=== PATIENT | female | born 1990 | race Caucasian/White ===

== ENCOUNTER 2017-11-28 13:58 | Emergency (ER) | payer OTHER ==
[2017-11-28 14:16] VITALS: BP 121/84
--- NOTE | 2017-11-28 15:27 | UC ---
Respiratory Complaint HPI - HPI Summary HPI Summary: Patient presents with an unremarkable past medical history. She states she is currently 5 week . She is G4, P2, A1. She presents today with complaints of 3 week onset left ear pain, scratchy throat at night, and persistent cough, at times with productive sputum. She states that her symptoms seem to be worse at night time. She states her child has been ill as well. She states she believes she has been running a low grade fever at times at home. She denies any chest, or abdominal pain, nausea, vomiting, or diarrhea. She denies palpitation, sensation of her heart racing, shortness of breath, leg pain , or calf pain, prolonged periods of immobility, recent surgeries, of blood disorders. - History of Current Complaint Chief Complaint: UCRespiratory Stated Complaint: COUGH Time Seen by Provider: 11/28/17 14:57 Hx Obtained From: Patient Hx Last Menstrual Period: 10/24/17 Onset/Duration: Gradual Onset, Lasting Weeks Timing: Intermittent Episodes Severity Initially: Mild Severity Currently: Moderate Pain Intensity: 0 Character: Cough: Productive Aggravating Factors: Deep Breaths, Recumbent Position Alleviating Factors: Upright Position, Spontaneous Resolution Associated Signs And Symptoms: Positive: Fever, URI, Nasal Congestion - Risk Factors Pulmonary Embolism Risk Factors: Cardiac Risk Factors: Negative - Allergies/Home Medications Allergies/Adverse Reactions: Allergies Allergy/AdvReac Type Severity Reaction Status Date / Time latex Allergy Itching Verified 11/28/17 14:17 Penicillins Allergy Hives Verified 11/28/17 14:17 PMH/Surg Hx/FS Hx/Imm Hx Previously Healthy: Yes - Surgical History Surgical History: None Surgery Procedure, Year, and Place: csection 05/2008, tubes in ears as a child. D&C - Family History Known Family History: Positive: Cardiac Disease, Hypertension, Diabetes - Social History Lives: With Family Alcohol Use: None Substance Use Type: None Smoking Status (MU): Former Smoker Have You Smoked in the Last Year: No - Immunization History Most Recent Influenza Vaccination: never Most Recent Tetanus Shot: 11/01/15 Most Recent Pneumonia Vaccination: never Review of Systems Constitutional: Negative Skin: Negative Eyes: Negative ENT: Sore Throat, Ear Ache, Nasal Discharge, Sinus Congestion Respiratory: Cough Cardiovascular: Negative Gastrointestinal: Negative Genitourinary: Negative Motor: Negative Neurovascular: Negative Musculoskeletal: Negative Neurological: Negative Psychological: Negative Is Patient Immunocompromised?: No All Other Systems Reviewed And Are Negative: Yes Physical Exam Triage Information Reviewed: Yes Appearance: Well-Appearing Vital Signs: Initial Vital Signs Temp 97.7 F 11/28/17 14:14 Pulse 90 11/28/17 14:14 Resp 18 11/28/17 14:14 BP 121/84 11/28/17 14:14 Pulse Ox 99 11/28/17 14:14 Vital Signs Reviewed: Yes Eye Exam: Normal ENT: Positive: Pharyngeal erythema, Nasal congestion, Nasal drainage, Uvula midline Neck exam: Normal Neck: Positive: 1 Respiratory: Positive: Rhonchi Cardiovascular Exam: Normal Abdominal Exam: Normal Musculoskeletal Exam: Normal Neurological Exam: Normal Psychological Exam: Normal Skin Exam: Normal UC Diagnostic Evaluation - Laboratory O2 Sat by Pulse Oximetry: 99 Respiratory Course/Dx - Course Course Of Treatment: Patient presents with three week onset respiratory illness unreponsive to OTC treatment. She presents with a nontoxic appearance, but does have persisent coughing in the clinic. She is 5 weeks . She was treated for bronchitis with cefdinir, and robitussin. I asked her to double check the meds with the pharmacy and follow up with her PCP. She verbalized understanding of and was in agreement with the discharge plan. - Differential Dx/Diagnosis Differential Diagnosis/HQI/PQRI: Bronchitis Provider Diagnoses: bronchitis Discharge - Discharge Plan Condition: Stable Disposition: HOME Prescriptions: Cefdinir [Cefdinir 300 MG CAP] 300 mg PO BID #20 capsule GuaiFENesin DM* [Robitussin DM*] 5 ml PO Q6H PRN #120 ml PRN Reason: Cough Patient Education Materials: Acute Bronchitis (ED) Referrals: Bailey Kimble MD [Primary Care Provider] -
== END 2017-11-28 15:27 | disposition home or self-care (01) ==
LOC: UCEAST 13:58
DX: O26.891 Other specified pregnancy related conditions, first trimester (principal); Z3A.01 Less than 8 weeks gestation of pregnancy; J40 Bronchitis, not specified as acute or chronic; Z87.891 Personal history of nicotine dependence; Z88.0 Allergy status to penicillin
CPT/HCPCS: 99212; G0463

== ENCOUNTER 2019-05-12 07:15 | Day surgery (SDC) | payer OTHER ==
[~2019-05-12 07:15] MED LIST: Buffered Lidocaine 1% SYRIN* 1 ML/SYRINGE INTRADERM ONE; Dexamethasone IV* 4 MG/ML 1 ML (4 MG) IV SLOW PU ONE; Famotidine IV* 10 MG/ML 2 ML (20 mg) IV ONE; Lactated Ringers 1000 ML Bag* 1,000 ML IV SCH
[2019-05-12] MEDS ORDERED: Buffered Lidocaine 1% SYRIN* 1 ML/SYRINGE INTRADERM ONE (07:48)
[2019-05-12] MEDS ORDERED: Clindamycin 900 MG IVPREMIX(* 900 MG/50 ML SDV IV ONE (07:48)
[2019-05-12] MEDS ORDERED: Dexamethasone IV* 4 MG/ML 1 ML (4 MG) ONE (07:48)
[2019-05-12] MEDS ORDERED: Famotidine IV* 10 MG/ML 2 ML (20 mg) ONE (07:48)
[2019-05-12] MEDS ORDERED: oxyCODONE/Acetamin 5/325 MG* TAB PO PRN (08:18)
[2019-05-12] MEDS ORDERED: HYDROcodone/ACETAMIN 5-325 MG* 1 TAB PO PRN (08:18)
[2019-05-12] MEDS ORDERED: Acetaminophen TAB* 325 MG PO PRN (08:18)
[2019-05-12] MEDS ORDERED: Ketorolac INJ* 30 MG/ML 1 ML VIAL IV PRN (08:18)
[2019-05-12] MEDS ORDERED: DiMENhydriNATE IV* 50 MG/ML VIAL IV PUSH PRN (08:18)
[2019-05-12] MEDS ORDERED: Naloxone* 0.4 MG/ML 1 ML VIAL IV PRN (08:18)
[2019-05-12] MEDS ORDERED: fentaNYL* 50 MCG/ML 2 ML VIAL (100 MCG VIAL) IV PRN (08:18)
[2019-05-12] MEDS ORDERED: fentaNYL* 50 MCG/ML 2 ML VIAL (100 MCG VIAL) ONE (09:07)
[2019-05-12] MEDS ORDERED: Midazolam* 1 MG/ML 5 ML VIAL (5 MG) ONE (09:07)
[2019-05-12] MEDS ORDERED: Propofol* 10 MG/ML 20 ML BTL ONE (09:07)
[2019-05-12] MEDS ORDERED: Lidocaine 2% PF * 5 ML VIAL ONE (09:08)
[2019-05-12] MEDS ORDERED: Dexamethasone IV* 4 MG/ML 5 ML VIAL (20 MG) ONE (09:37)
[2019-05-12] MEDS ORDERED: Bupivacaine 0.25% SDV PF* 10 ML VIAL INJ ONE (09:37)
[2019-05-12] MEDS ORDERED: Lidocaine 1% INJ* 10 MG/ML 30 ML SDV ONE (09:37)
[2019-05-12] MEDS ORDERED: EPHEDrine (Pressors)* 50 MG/ML VIAL ONE (10:20)
[2019-05-12] MEDS ORDERED: Midazolam* 1 MG/ML 2 ML VIAL (2 MG) ONE (11:19)
[2019-05-12] MEDS ORDERED: Ondansetron INJ* 2 MG/ML VIAL ONE (11:41)
[2019-05-12 12:09] VITALS: BP 118/71
--- NOTE | 2019-05-12 16:36 | OP ---
DATE OF OPERATION: 05/12/19 - [facility] DATE OF : 88 SURGEON: Pedro Ceballos DPM. ANESTHESIA: MAC local. PRE-OP DIAGNOSIS: Right hallux valgus. POST-OP DIAGNOSIS: Right hallux valgus. OPERATIVE PROCEDURE: Right hallux valgus repair. ESTIMATED BLOOD LOSS: Less than 10 cc. IV FLUIDS: LR 1000 cc. DRAINS: None. SPECIMENS: Bone and bone shavings from the first metatarsal head area as specimens. DESCRIPTION OF PROCEDURE: The patient was taken to the operating room and was placed in the supine position. Time-out was called and OR team agreed. The right foot was then blocked with 10 cc of 1% lidocaine plain in a Sanchez block fashion at the base of the first metatarsal. The foot was then prepped and draped in a sterile manner. The right foot was exsanguinated with an Esmarch bandage and the cuff was then inflated to 250 mmHg. Attention was then paid to the first metatarsophalangeal joint where there was a moderate-sized hallux valgus deformity with a moderate abnormal increase of the first and second metatarsal intermetatarsal angle. I went ahead and dissected at the level of the first metatarsophalangeal joint from dermis, epidermis, subcutaneous tissue , and down to the deep fascia and capsule. I went ahead and incised the capsule and dissected down to the joint. I went ahead and used a sagittal saw to remove the dorsomedial exostosis as well as the dorsal exostosis and tried to remodel the head of the first metatarsal, convert it to a round metatarsal head so it can fit nicely with the articular surface of the proximal phalanx. I went ahead and extended this incision proximally and continued the dissection with all neurovascular structures retracted from the site all the way down to the first metatarsal and first metatarsocuneiform joint. I went ahead and dissected that. Once I was able to free the first metatarsal all the way down to the first metatarsocuneiform joint, I went ahead and performed an oblique wedge osteotomy. I removed an oblique wedge of bone and intentionally broke the hinge at the medial aspect for the purpose of shortening the first metatarsal as well as plantar flexing it and derotating it, creating a triplanar correction at the level of the first metatarsophalangeal joint and at the same time, just shortening the metatarsal as she had a long first metatarsal to reduce jamming and constriction at the first metatarsophalangeal joint movement. When I was able to successfully do that, I went ahead and fixated it with two 2.0 screws from the [employer] set. The first proximal screw, which I placed perpendicular to the axis of the metatarsal, was 26 mm long; and, the more distal screw, which I placed perpendicular to the osteotomy, was 28 mm long. This was done under the guidance of fluoroscopy. Once it was determined that I had good fixation, the procedure was then deemed completed. I went ahead and took one last fluoroscopy to look at the alignment at the first metatarsophalangeal joint to be used for my finding. There was a good congruent alignment of the first metatarsophalangeal joint. The fibular and tibial sesamoid were perfectly in place and the intermetatarsal angle was reduced to 0 degrees. This completes the procedure. The wound was then irrigated and closed in a layered anatomical fashion. The deeper tissues were closed with an absorbable 3-0 Vicryl and the skin was closed with 4-0 nylon in interrupted fashion. The site was injected with 8 cc of 0.25% Marcaine plain as well as 8 mg or 2 cc of dexamethasone phosphate. The cuff was then deflated. The foot was placed in a dry sterile dressing. I evaluated the capillary refill of all the right toes #1, #2, #3, #4, and #5 and they had good instantaneous refill with no signs of ischemia. The patient was taken to recovery in stable condition and was later discharged in stable condition as well. [id number]/[facility] #: [id number] [facility]ITALTai
== END 2019-05-12 13:20 | disposition home or self-care (01) ==
LOC: OR 07:15
PROVIDERS: ATTEND Podiatrist
DX: M20.11 Hallux valgus (acquired), right foot (principal); R73.01 Impaired fasting glucose; Z87.891 Personal history of nicotine dependence
CPT/HCPCS: 76000; 81025; 88304; 88311; C1713; C1776; J1100; J2250; J2405; J2704; J3010; J3490

== ENCOUNTER 2019-12-17 19:41 | Emergency (ER) | payer OTHER ==
--- OUTSIDE RECORDS SUMMARY | 2019-12-17 19:46 | XMS REPORT | Summary of Care ---
:1990 Author Organization [facility] Address [address] [address] Care Team Providers Name Role Phone Bailey Kimble Primary Care Provider Reason for Visit Reason Comments Sick last two days her throat has been hurting, runny nose, headache, hot anf cold flashes. Encounter Details Date Type Department Care Team Description 12/06/2019 Office Visit [facility] Miguel Flores, Sore throat ( Primary Dx); Medicine [place] Cough; [address] [place] [address] [place] [address] [phone] Allergies Active Allergy Reactions Severity Noted Date Comments Latex Dermatologic Reaction 10/29/2015 Penicillin G Potassium Hives 06/30/2007 documented as of this encounter (statuses as of 12/06/2019) Medications Medication Sig Dispensed Refills Start Date End Date Status valACYclovir HCl Take by mouth 0 Active (VALTREX PO) NEEDED. Benzonatate 200 MG Oral Take 1 Cap by 42 Cap 0 12/06/2019 Active CapIndications: Cough mouth THREE TIMES DAILY NEEDED (For cough). fluticasone (FLONASE) Shelbina 2 Sprays in 1 Bottle 3 12/06/2019 Active 50 MCG/ACT Nasal nose DAILY. SuspensionIndications: Nasal congestion guaifenesin (MUCINEX) Take 1 Tab by 28 Tab 0 12/06/2019 Active 600 MG Oral TABLET SR mouth EVERY 12 HRIndications: Cough TWELVE HOURS. documented as of this encounter (statuses as of 12/06/2019) Active Problems Problem Noted Date Chronic constipation Genital HSV Hallux valgus (acquired), right foot documented as of this encounter (statuses as of 12/06/2019) Resolved Problems Problem Noted Date Resolved Date Hx c/s, planning repeat 04/29/2015 07/19/2015 Supervision of other normal 04/29/2015 07/19/2015 Bicornuate uterus 04/29/2015 07/19/2015 Scanty or infrequent menstruation 12/15/2006 12/09/2011 Other general symptoms(780.99) 01/28/2006 03/13/2008 Vascular disorder of skin 03/13/2008 documented as of this encounter (statuses as of 12/06/2019) Immunizations Name Administration Dates Next Due Hepatitis B Vaccine 10/25/2001, 06/14/2001 Human Papillomavirus 04/18/2007, 02/11/2007, 12/15/2006 MENINGOCOCCAL CONJUGATE VACCINE 01/21/2009 dT Vaccine 05/16/2003 documented as of this encounter Social History Tobacco Use Types Packs/Day Years Used Date Never Smoker 0 Smokeless Tobacco: Former User Chew Quit: 10/11/2010 Alcohol Use Drinks/Week oz/Week Comments No rarely Sex Assigned at Date Recorded Not on file documented as of this encounter Last Filed Vital Signs Vital Sign Reading Time Taken Comments Blood Pressure 128/70 12/06/2019 9:22 AM EST Pulse 73 12/06/2019 9:22 AM EST Temperature 36.9 12/06/2019 9:22 AM EST C (98.4 F) Respiratory Rate - - Oxygen Saturation 98% 12/06/2019 9:22 AM EST Inhaled Oxygen Concentration - - Weight 64.4 kg (142 lb) 12/06/2019 9:22 AM EST Height 154.9 cm (5' 1") 12/06/2019 9:22 AM EST Body Mass Index 26.83 12/06/2019 9:22 AM EST documented in this encounter Progress Notes Miguel Flores PA - 12/06/2019 9:20 AM EST PATIENT: Crissy Osei : 1990 DATE OF SERVICE: 12/06/2019 Subjective SUBJECTIVE: Crissy Osei is a 29-y.o. female who presents for evaluation of congestion, non productive cough and sore throat. Onset of symptoms was 4 days ago, gradually worsening since that time. She is drinking plenty of fluids. Past history is significant for no history of pneumonia or bronchitis. Patient is non-smoker. Past Medical History: Diagnosis Date ? Allergic rhinitis, cause unspecified ? Anxiety attack ? 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 Chronic constipation ? FAMILY HX MALIGNANCY NEC ? Gastritis ? Genital HSV ? Hallux valgus (acquired), right foot ? Migraine 12/15/2012 better since going off OCP's ? Nephrolithiasis 08/21/2013 First-time 08/2013 ? Transaminitis 03/19: ALT 117, AST 55; resolved 07/19 Family History Problem Relation Age of Onset ? Cancer Unknown Grandparents maternal and paternal ? Arthritis Unknown ? Asthma Unknown ? Cancer Maternal Grandmother ovarian Current Outpatient Medications Medication Sig ? Benzonatate 200 MG Oral Cap Take 1 Cap by mouth THREE TIMES DAILY NEEDED (For cough). ? fluticasone (FLONASE) 50 MCG/ACT Nasal Suspension Shelbina 2 Sprays in nose DAILY. ? guaifenesin (MUCINEX) 600 MG Oral TABLET SR 12 HR Take 1 Tab by mouth EVERY TWELVE HOURS. ? valACYclovir HCl (VALTREX PO) Take by mouth NEEDED. No current facility-administered medications for this visit. Allergies Allergen Reactions ? Latex Dermatologic Reaction ? Penicillin [Penicillin G Potassium] Hives Social History Socioeconomic History ? Marital status: Single Spouse name: Not on file ? Number of children: Not on file ? Years of education: Not on file ? Highest education level: Not on file Occupational History ? Not on file Social Needs ? Financial resource strain: Not on file ? Food insecurity Worry: Not on file Inability: Not on file ? Transportation needs Medical: Not on file Non-medical: Not on file Tobacco Use ? Smoking status: Never Smoker ? Smokeless tobacco: Former User Types: Chew Substance and Sexual Activity ? Alcohol use: No Comment: rarely ? Drug use: No ? Sexual activity: Yes Partners: Male control/protection: Condom Lifestyle ? Physical activity Days per week: Not on file Minutes per session: Not on file ? Stress: Not on file Relationships ? Social connections Talks on phone: Not on file Gets together: Not on file Attends samaritan service: Not on file Active member of club or organization: Not on file Attends meetings of clubs or organizations: Not on file Relationship status: Not on file ? Intimate partner violence Fear of current or ex partner: Not on file Emotionally abused: Not on file Physically abused: Not on file Forced sexual activity: Not on file Other Topics Concern ? Back Care Not Asked ? Bike Helmet Not Asked ? Blood Transfusions Not Asked ? Caffeine Concern Not Asked ? Exercise Not Asked ? Hobby Hazards Not Asked ? International Travel Not Asked ? Service Not Asked ? Occupational Exposure Not Asked ? Seat Belt Not Asked ? Self-Exams Not Asked ? Sleep Concern No ? Special Diet No ? Stress Concern No ? Weight Concern No Social History Narrative Best phone #[phone] (her cell) Backup number: [phone] ( her mom's home #) Crissy graduated high school, took some classes at [employer]. 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 She and KAILYN Dorado (24) have been together since 08/2013 And this is to be his first child. He graduated high school and works as a supervisor backfilling with [employer] with developmentally disabledadults. For fun they talk walks, go to the park, visit the falls and gorges. They have a pug puppy named Adam and Thais his elderly minpin. Her cat is . They also have one tropical fish. They aren't gardening this year. NO video games. REVIEW OF SYSTEMS: Review of Systems Constitutional: Negative for chills, fever and malaise/fatigue. HENT: Positive for congestion and sore throat. Negative for ear discharge and ear pain. Respiratory: Positive for cough. Negative for sputum production, shortness of breath and wheezing. Cardiovascular: Negative for chest pain, palpitations and leg swelling. Gastrointestinal: Positive for nausea. Negative for abdominal pain, diarrhea and vomiting. Genitourinary: Negative for dysuria and urgency. Musculoskeletal: Negative for joint pain, myalgias and neck pain. Neurological: Negative for dizziness and headaches. Objective OBJECTIVE: BP 128/70 (BP Location: Right arm, Patient Position: Sitting) | Pulse 73 | Temp 98.4 F (36.9 C) (Tympanic) | Ht 5' 1" (1.549 m) | Wt 142 lb ( 64.4 kg) | SpO2 98% | BMI 26.83 kg/m GENERAL: alert, cooperative, no distress. HEAD: normocephalic, atraumatic without lesions or tenderness. EYES: conjunctivae/corneas clear. Pupils equal, round, reactive to light. Equal ocular movements intact. Fundi benign.. EARS: normal tympanic membranes and external ear canals, bilaterally. SINUS TENDER: negative. MOUTH: lips, mucosa, and tongue normal: teeth and gums normal. NECK: supple, symmetrical, trachea midline. LUNGS: clear to auscultation bilaterally. ASSESSMENT: Acute viral sinusitis ICD-9-CM ICD-10-CM 1. Sore throat 462 J02.9 STREP A ANTIGEN (AMB POCT) THROAT STREP SCREEN CULTURE 2. Cough 786.2 R05 Benzonatate 200 MG Oral Cap guaifenesin (MUCINEX) 600 MG Oral TABLET SR 12 HR 3. Nasal congestion 478.19 R09.81 fluticasone (FLONASE) 50 MCG/ACT Nasal Suspension Plan PLAN: 1. Medications per orders. 2. Appears to be viral in nature, antibiotics not warranted at this time. 3. Follow up if symptoms worsen or persist. Author: WILLEM Russo 12/06/2019 09:36 documented in this encounter Plan of Treatment Name Type Priority Associated Diagnoses Order Schedule STREP A ANTIGEN (AMB POCT Routine Sore throat Ordered: 12/06/2019 POCT) THROAT STREP SCREEN Lab Routine Sore throat 1 Occurrences starting CULTURE 12/06/2019 until 06/03/2020 Health Maintenance Due Date Last Done Comments HPV IMMUNIZATION SERIES (3 - 08/19/2007 04/18/2007, 02/11/2007, Female 3-dose series) 12/15/2006 DTaP/Tdap/Td Vaccines (2 - 05/16/2013 05/16/2003 Tdap) PAP SMEAR 05/18/2017 05/18/2014, 05/18/2014, 09/11/2011, Additional history exists INFLUENZA VACCINE (#1) 2019 DEPRESSION SCREENING 04/21/2020 04/21/2019 MENINGOCOCCAL VACCINE IMM Aged Out 01/21/2009 No longer eligible based on patient's age to complete this topic HEPATITIS A IMMUNIZATION Aged Out No longer eligible SERIES based on patient's age to complete this topic PNEUMOCOCCAL 0-64 YRS Aged Out No longer eligible based on patient's age to complete this topic documented as of this encounter Results Not on filedocumented in this encounter Visit Diagnoses Diagnosis Sore throat Acute pharyngitis Cough Nasal congestion Other diseases of nasal cavity and sinuses documented in this encounter documented as of this encounter
[2019-12-17 20:10] VITALS: BP 124/75
[2019-12-17 20:30] LABS: Influenza A Molecular Negative (Negative); Influenza B Molecular Negative (Negative)
[2019-12-17] MEDS ORDERED: Albuterol HFA INHALER* 8 gm MDI INH ONE (20:36)
[2019-12-17] MEDS ORDERED: Azithromycin TAB* 250 MG PO ONE (20:36)
--- NOTE | 2019-12-17 20:36 | UC ---
FLU HPI - HPI Summary HPI Summary: body aches cough fever no recent travel--the worst is almost 2 weeks of sinus pain and pressure - History of Current Complaint Chief Complaint: UCRespiratory Stated Complaint: COUGH Time Seen by Provider: 12/17/19 20:07 Hx Obtained From: Patient Hx Last Menstrual Period: 11/26/19 ?: No Onset/Duration: Gradual Onset, Lasting Weeks - 2, Worse Since - past 4-5 days Pain Intensity: 8 Pain Scale Used: 0-10 Numeric Associated Signs & Symptoms: Positive: Fever, Myalgia, Nasal Congestion, Headache - Allergy/Home Medications Allergies/Adverse Reactions: Allergies Allergy/AdvReac Type Severity Reaction Status Date / Time latex Allergy Itching, Verified 12/17/19 20:10 burning Penicillins Allergy Hives Verified 12/17/19 20:10 Home Medications: Home Medications Azithromycin TAB* [Zithromax TAB (Z-KIMBERLI) 250 mg #6 tabs] 250 mg PO DAILY #4 tab 12/17/19 [Rx] Diphenhydra/Phenyleph/Acetamin [Cold & Flu Relief Multi-Sym Lq] 180 ml PO DAILY 12/17/19 [History Confirmed 12/17/19] PMH/Surg Hx/FS Hx/Imm Hx Previously Healthy: Yes - Surgical History Surgical History: Yes Surgery Procedure, Year, and Place: csection 05/2008,2016,2018-[facility], tubes in ears as a child. D&C-[facility]. foot - Family History Known Family History: Positive: Cardiac Disease, Hypertension, Diabetes - Social History Occupation: Employed Full-time Lives: With Family Alcohol Use: Occasionally Substance Use Type: None Smoking Status (MU): Former Smoker Amount Used/How Often: <1 PACK PER WEEK X 4-5 YEARS Have You Smoked in the Last Year: No When Did the Patient Quit Smoking/Using Tobacco: 8 YEARS AGO - Immunization History Most Recent Influenza Vaccination: never Most Recent Tetanus Shot: 11/01/15 Most Recent Pneumonia Vaccination: never Review of Systems All Other Systems Reviewed And Are Negative: Yes Constitutional: Positive: Fever, Chills, Fatigue Skin: Positive: Negative Eyes: Positive: Negative ENT: Positive: Sore Throat, Nasal Discharge, Sinus Congestion Respiratory: Positive: Negative Cardiovascular: Positive: Negative Gastrointestinal: Positive: Negative Genitourinary: Positive: Negative Motor: Positive: Negative Neurovascular: Positive: Negative Musculoskeletal: Positive: Negative Neurological/Mental Status: Positive: Negative Psychological: Positive: Negative Is Patient Immunocompromised?: No Physical Exam Triage Information Reviewed: Yes Appearance: Well-Appearing, No Pain Distress, Well-Nourished Vital Signs: Initial Vital Signs Temp 100.9 F 12/17/19 20:04 Pulse 102 12/17/19 20:04 Resp 16 12/17/19 20:04 BP 124/75 12/17/19 20:04 Pulse Ox 99 12/17/19 20:04 Vital Signs Reviewed: Yes Eye Exam: Normal Eyes: Positive: Conjunctiva Clear ENT Exam: Normal ENT: Positive: Normal ENT inspection, Hearing grossly normal, Pharynx normal, Nasal congestion, TMs normal, Sinus tenderness, Uvula midline. Negative: Tonsillar swelling, Tonsillar exudate, Trismus, Muffled voice, Hoarse voice, Dental tenderness Dental Exam: Normal Neck exam: Normal Neck: Positive: Supple, Nontender, No Lymphadenopathy Respiratory Exam: Normal Respiratory: Positive: Chest non-tender, Lungs clear, Normal breath sounds, No respiratory distress, No accessory muscle use Cardiovascular Exam: Normal Cardiovascular: Positive: RRR, No Murmur, Pulses Normal, Brisk Capillary Refill Musculoskeletal Exam: Normal Musculoskeletal: Positive: Strength Intact, ROM Intact, No Edema Neurological Exam: Normal Neurological: Positive: Alert, Muscle Tone Normal Psychological Exam: Normal Skin Exam: Normal Diagnostics - Laboratory Lab Results: influenza a/b - Flu Course/Dx - Course Course Of Treatment: increase fluids zithromax, otc medications for sx relief home until 24 hours fever free follow with pcp - Differential Dx/Diagnosis Provider Diagnosis: Acute sinusitis Discharge ED - Sign-Out/Discharge Documenting (check all that apply): Patient Departure All imaging exams completed and their final reports reviewed: No Studies - Discharge Plan Condition: Stable Disposition: HOME Prescriptions: Azithromycin TAB* [Zithromax TAB (Z-KIMBERLI) 250 mg #6 tabs] 250 mg PO DAILY #4 tab Patient Education Materials: Sinusitis (ED), Bronchospasm (ED) Forms: *Work Release Referrals: Bailey Kimble MD [Primary Care Provider] - If Needed - Billing Disposition and Condition Condition: STABLE Disposition: Home
== END 2019-12-17 22:00 | disposition home or self-care (01) ==
LOC: UCEAST 19:41
DX: J01.90 Acute sinusitis, unspecified (principal); Z88.0 Allergy status to penicillin; Z91.040 Latex allergy status; Z87.891 Personal history of nicotine dependence
CPT/HCPCS: 99212; A9270-GY; G0463